=== PATIENT | female | born 1985 | race African-American/Black ===

== ENCOUNTER 2017-05-08 21:12 | Emergency (ER) | payer MEDICAID, OTHER ==
[~2017-05-08] VITALS: Ht 154.9 cm; Wt 65.8 kg
[2017-05-08] MEDS ORDERED: BACTRIM DS TAB1 EACH PO (21:48)
[2017-05-08] MEDS ORDERED: IBUPROFEN 800800 M1 PO (21:48)
[2017-05-08 21:55] VITALS: BP 125/89
== END 2017-05-08 21:51 | disposition home or self-care (01) ==
LOC: ER 21:12
DX: L03.011 Cellulitis of right finger (principal); Z98.890 Other specified postprocedural states